=== PATIENT | female | born 1990 | race Caucasian/White ===

== ENCOUNTER 2019-08-14 10:55 | Emergency (ER) | payer MEDICAID, SELFPAY ==
[2019-08-14 11:15] VITALS: BP 124/86; PULSE 91; RESP 20; TEMP 37.1; O2SAT 99
--- NOTE | 2019-08-14 11:25 | ED.URI ---
HPI - URI/Sore Throat General Chief Complaint: Upper Respiratory Infection Stated Complaint: sore throat and congestion Time Seen by Provider: 08/14/19 11:25 Source: patient and family History of Present Illness HPI Narrative: Patient presents with concerns that she has been exposed to influenza B. 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 Patient complains of generalized body aches nasal congestion and cough. No shortness of breath no chest pain has not taken thing [id number] for her symptoms. MD elicited complaint: rhinorrhea and nasal congestion Related Data Home Medications Medication Instructions Recorded Confirmed Probiotic DAILY 08/14/19 Vitamin D 08/14/19 bupropion HCl 300 mg PO QAM 08/14/19 08/14/19 gabapentin 100 mg PO DAILY 08/14/19 08/14/19 levothyroxine 137 mcg PO DAILY 08/14/19 08/14/19 linaclotide [Linzess] 145 mcg PO DAILY 08/14/19 08/14/19 omeprazole 20 mg PO DAILY 08/14/19 08/14/19 sertraline [Zoloft] 100 mg PO DAILY 08/14/19 08/14/19 Allergies Allergy/AdvReac Type Severity Reaction Status Date / Time No Known Allergies Allergy Unverified 08/22/18 16:55 Review of Systems Review of Systems: Narrative: CONSTITUTIONAL: Denies fever, chills, or sweats. EYES: Denies visual changes, redness, or discharge. ENT: Reports rhinorrhea, congestion, denies sore throat, or otalgia. CARDIOVASCULAR: Denies chest pain, palpitations, or edema. RESPIRATORY: Denies dyspnea. GASTROINTESTINAL: Denies abdominal pain, nausea, vomiting, or diarrhea. GENITOURINARY: Denies dysuria or hematuria. SKIN: Denies rash or itching. MUSCULOSKELETAL: Denies back pain, joint pain, or myalgia. NEUROLOGIC: Denies headache, numbness, or weakness. PSYCHIATRIC: Denies anxiety or depression. All systems reviewed & are unremarkable except as noted in HPI and below Constitutional: Constitutional: Reports as per HPI ENT: Reports system reviewed and no additional complaints, except as documented PMFSH Comments At time of signature, agree with nursing past medical, surgical, social and family history. There is no relevant family history pertinent to the presenting complaint Exam Narrative: Exam Narrative: The patient is a well-developed, well-nourished in no acute distress. SKIN: Skin is warm and dry without erythema, swelling or exudate. There is good turgor. No tenting. HEAD: Atraumatic. Normocephalic. No temporal or scalp tenderness. EYES: Moist and bright. Sclera and conjunctivae normal. No discharge. PERRLA. Extraocular motions intact. Gross visual acuity intact. EARS: Pinna is normal shape and contour. Clear external auditory canals. TM pearly miller with good cone of light, no erythema or suppuration. Bilateral cerumen noted no gross hearing deficit. NOSE: pink, moist mucosa with good air movement. Clear rhinorrhea without nasal flaring. Septum midline. Mouth: moist mucous membranes. THROAT; mild erythema noted to posterior oropharynx with moderate postnasal drainage. Without exudate or ulceration.. Uvula midline. Normal movement of soft palate. NECK: Supple and nontender with full range of motion without discomfort. No meningeal signs. LUNGS: Equal and bilateral breath sounds without wheezes, rales or rhonchi. CHEST: The chest wall is without retractions or use of accessory muscles. HEART: Has a regular rate and rhythm without murmur, gallops, click or rub. ABDOMEN: Soft, nontender with positive active bowel sounds. No rebound tenderness. EXTREMITIES: Without cyanosis, clubbing or edema. Equal 2+ distal pulses and 2 second capillary refill noted. NEUROLOGIC: alert, active, . The patient moves all extremities with normal muscle strength. Normal muscle tone is noted. Normal coordination is noted. NO focal neurological findings noted. Course Vital Signs Vital signs: Vital Signs Temperature 37.1 C 08/14/19 11:15 Pulse Rate 91 08/14/19 11:15 Respirator
== END 2019-08-14 11:47 | disposition home or self-care (01) ==
PROVIDERS: Emergency Provider Nurse Practitioner Family
DX: B34.9 Viral infection, unspecified (principal); J06.9 Acute upper respiratory infection, unspecified; E03.9 Hypothyroidism, unspecified; F41.9 Anxiety disorder, unspecified
CPT/HCPCS: 87804; 99212; G0463

== ENCOUNTER 2021-02-13 16:39 | Emergency (ER) | payer OTHER, SELFPAY ==
[2021-02-13 16:43] VITALS: BP 130/83; PULSE 89; RESP 18; TEMP 37.1; O2SAT 98
--- NOTE | 2021-02-13 16:44 | ED.EAR ---
HPI - Ear Problem General Chief complaint: Ear Stated complaint: Possible Ear infection Time Seen by Provider: 02/13/21 16:44 Source: patient and RN notes reviewed History of Present Illness HPI Narrative: Patient is a 30-year-old female who presents the urgent care with complaints of right ear pain, sneezing and postnasal drainage. Patient states that her symptoms have been ongoing for approximately a week and a half. Denies any fever, chills, nausea, vomiting. Denies any known contact with Covid. States that she did have Covid in November. States that she has been taking DayQuil and Mucinex [id number] for her symptoms. No other acute complaints. No acute distress noted. Patient aware of the plan of care. Some parts of this dictation were generated by voice recognition software and may contain typographical and/or grammatical inaccuracies. Related Data Home Medications Medication Instructions Recorded Confirmed bupropion HCl 300 mg PO QAM 08/14/19 02/13/21 gabapentin 100 mg PO TID 08/14/19 02/13/21 levothyroxine 137 mcg PO DAILY 08/14/19 02/13/21 linaclotide [Linzess] 145 mcg PO PRN PRN 08/14/19 02/13/21 omeprazole 20 mg PO DAILY 08/14/19 02/13/21 sertraline [Zoloft] 100 mg PO DAILY 08/14/19 02/13/21 clonazepam 0.5 mg PO PRN PRN 02/13/21 02/13/21 cyclobenzaprine 10 mg PO PRN PRN 02/13/21 02/13/21 doxycycline monohydrate 100 mg PO TID 02/13/21 02/13/21 galcanezumab-gnlm [Emgality Pen] 120 mg SUBCUT MONTHLY 02/13/21 02/13/21 hydroxyzine HCl 0.5 mg PO PRN PRN 02/13/21 02/13/21 prochlorperazine maleate 10 mg PO TID PRN 02/13/21 02/13/21 rizatriptan 10 mg PO DAILY PRN 02/13/21 02/13/21 zolpidem 5 mg PO HS PRN 02/13/21 02/13/21 Allergies Allergy/AdvReac Type Severity Reaction Status Date / Time No Known Allergies Allergy Unverified 02/13/21 16:53 Review of Systems Review of Systems: CONSTITUTIONAL: Denies fever, chills, or sweats. EYES: Denies visual changes, redness, or discharge. ENT: Reports of right otalgia, postnasal drainage and rhinorrhea CARDIOVASCULAR: Denies chest pain, palpitations, or edema. RESPIRATORY: Denies cough or dyspnea. GASTROINTESTINAL: Denies abdominal pain, nausea, vomiting, or diarrhea. GENITOURINARY: Denies dysuria or hematuria. SKIN: Denies rash or itching. MUSCULOSKELETAL: Denies back pain, joint pain, or myalgia. NEUROLOGIC: Denies headache, numbness, or weakness. All other systems reviewed are negative, except as documented in HPI. PMFSH Comments At the time of my signature, I reviewed and agree with the nursing past medical, surgical, social, and family history. There is no relevant family history pertinent to the patient complaint. Exam Narrative: GENERAL: This is a well-nourished, well-developed patient, in no apparent distress. HEAD: normocephalic, atraumatic. EYES: PERRL. Sclera clear/white. Vision is grossly intact. EARS: External ears normal, auditory canals clear and without drainage, mild fluid behind bilateral TMs without otitis. TMs normal without perforation. Hearing grossly intact. NOSE: External nose normal with no obvious nasal discharge, nares without redness, no rhinorrhea. THROAT: Mucous membranes moist, posterior pharynx clear. Mild postnasal drainage NECK: Neck supple CARDIOVASCULAR: Regular rate and rhythm without murmurs, gallops, or rubs. RESPIRATORY: Clear to auscultation. Breath sounds equal bilaterally. No wheezes, rales, or rhonchi. SKIN: warm, intact with no suspicious lesions or rash, good texture and turgor. NEURO: awake, alert, and oriented to person, place and time. There were no obvious focal neurologic abnormalities. EXTREMITIES: No clubbing, cyanosis, or edema. Course Vital Signs Vital signs: Vital Signs Temperature 98.8 F 02/13/21 16:43 Pulse Rate 89 02/13/21 16:43 Respiratory Rate 18 02/13/21 16:43 Blood Pressure 130/83 02/13/21 16:43 Pulse Oximetry 98 02/13/21 16:43 Temperature 98.8 F 02/13/21 16:43 Pulse Rate 89
== END 2021-02-13 17:11 | disposition home or self-care (01) ==
PROVIDERS: Emergency Provider Nurse Practitioner Family
DX: H92.01 Otalgia, right ear (principal); K21.9 Gastro-esophageal reflux disease without esophagitis; E03.9 Hypothyroidism, unspecified; F41.9 Anxiety disorder, unspecified
CPT/HCPCS: 99211; G0463

== ENCOUNTER 2021-04-01 08:57 | Emergency (ER) | payer OTHER, SELFPAY ==
[2021-04-01 08:57] VITALS: BP 117/84; PULSE 100; RESP 18; TEMP 36.7; O2SAT 98
--- NOTE | 2021-04-01 09:12 | ED.EAR ---
HPI - Ear Problem General Chief complaint: Ear Stated complaint: Right ear pain Time Seen by Provider: 04/01/21 09:02 Source: patient and RN notes reviewed Mode of arrival: ambulatory Limitations: no limitations History of Present Illness HPI Narrative: Patient presents today complaining of right ear pain and clogging x1 week. She currently rates her pain 5/10 and describes the pain as an aching. She has applied a warm compress to her ear, but has tried no other [id number] interventions prior to arrival. Denies any additional symptoms to include cough, congestion, rhinorrhea, sore throat. MD Complaint: ear pain Related Data Home Medications Medication Instructions Recorded Confirmed bupropion HCl 300 mg PO QAM 08/14/19 04/01/21 gabapentin 100 mg PO TID 08/14/19 04/01/21 levothyroxine 137 mcg PO DAILY 08/14/19 04/01/21 linaclotide [Linzess] 145 mcg PO PRN PRN 08/14/19 04/01/21 omeprazole 20 mg PO DAILY 08/14/19 04/01/21 sertraline [Zoloft] 100 mg PO DAILY 08/14/19 04/01/21 clonazepam 0.5 mg PO PRN PRN 02/13/21 04/01/21 cyclobenzaprine 10 mg PO PRN PRN 02/13/21 04/01/21 doxycycline monohydrate 100 mg PO TID 02/13/21 04/01/21 galcanezumab-gnlm [Emgality Pen] 120 mg SUBCUT MONTHLY 02/13/21 04/01/21 hydroxyzine HCl 0.5 mg PO PRN PRN 02/13/21 04/01/21 prochlorperazine maleate 10 mg PO TID PRN 02/13/21 04/01/21 rizatriptan 10 mg PO DAILY PRN 02/13/21 04/01/21 zolpidem 5 mg PO HS PRN 02/13/21 04/01/21 Allergies Allergy/AdvReac Type Severity Reaction Status Date / Time No Known Allergies Allergy Verified 04/01/21 09:03 Review of Systems Review of Systems: CONSTITUTIONAL: Denies body aches, fever, chills, or sweats. EYES: Denies visual changes, redness, or discharge. ENT: Denies rhinorrhea, congestion, sore throat. + Right ear pain CARDIOVASCULAR: Denies chest pain, palpitations, or edema. RESPIRATORY: Denies cough or dyspnea. GASTROINTESTINAL: Denies abdominal pain, nausea, vomiting, or diarrhea. GENITOURINARY: Denies dysuria or hematuria. SKIN: Denies rash, itching, or wounds. MUSCULOSKELETAL: Denies back pain, joint pain, or myalgia. NEUROLOGIC: Denies headache, numbness, tingling, or weakness. PSYCH: Denies depression or anxiety. [facility] Past Medical History Medical History (Updated 04/01/21 @ 09:17 by Amy Suh, [employer], ) Anxiety Bipolar disorder GERD (gastroesophageal reflux disease) Hypothyroidism Migraines Surgical History Surgical History (Updated 04/01/21 @ 09:15 by Amy Suh, [facility], ) History of cholecystectomy Comments At time of signature, I have reviewed and agree with nursing past medical, surgical, social and family history unless otherwise noted. Please see nursing chart for further information. There is no relevant family history pertinent to the presenting complaint Exam Narrative: GENERAL: Well-appearing, well-nourished, and in no acute distress. HEAD: Normocephalic, atraumatic. EYES: EOMI. No redness or drainage. Conjunctivae normal. ENT: Mucous membranes pink and moist. Nares clear. No rhinorrhea. Middle ear effusion on the right. Left TM normal throat normal. Uvula midline. NECK: Normal AROM. Supple. No lymphadenopathy. CHEST: No respiratory distress. Clear to auscultation. HEART: Regular rate and rhythm. No murmur appreciated. Normal peripheral pulses. EXTREMITIES: Normal range of motion. No edema. SKIN: Warm, dry, no rash. Capillary refill normal. Normal skin turgor. NEURO: No focal deficits. Alert and oriented x3. Gait steady. PSYCH: Normal affect. No signs of depression or anxiety. Course Vital Signs Vital signs: Vital Signs Temperature 98.1 F 04/01/21 08:57 Pulse Rate 100 04/01/21 08:57 Respiratory Rate 18 04/01/21 08:57 Blood Pressure 117/84 04/01/21 08:57 Pulse Oximetry 98 04/01/21 08:57 Temperature 98.1 F 04/01/21 08:57 Pulse Rate 100 04/01/21 08:57 Respiratory Rate 18 04/01/21 08:57 Blood Pressure 117/84
== END 2021-04-01 09:20 | disposition home or self-care (01) ==
PROVIDERS: Emergency Provider Nurse Practitioner; PCP Internal Medicine
DX: H65.01 Acute serous otitis media, right ear (principal); E03.9 Hypothyroidism, unspecified; F41.9 Anxiety disorder, unspecified
CPT/HCPCS: 99211; G0463